=== PATIENT | male | born 1965 | race Caucasian/White ===

== ENCOUNTER 2021-06-03 04:04 | Emergency (ER) | payer MEDICARE, OTHER, SELFPAY ==
[2021-06-03] VITALS (60 sets, daily range): BP systolic 69–176; BP diastolic 29–94; PULSE 62–140; RESP 7–26; TEMP 36.6; O2SAT 93–100
--- NOTE | 2021-06-03 04:00 | RT.EKG_ITS ---
APPROVED REPORT Exam: Resting ECG Reason for Exam: Chest pain Patient Location: E HR:88 bpm ECG Measurements Heart Rate [address] 200 P 60 QRSd 122 QRS 84 QT 401 T 13 QTc 486 Conclusion Sinus rhythm...normal P axis, V-rate 60- 99 Nonspecific intraventricular conduction delay...QRSd >115mS, not LBBB/RBBB, negative for SCARBOSSA. Q wave in lead III. No STEMI.
--- NOTE | 2021-06-03 04:19 | W.ED.GENAD ---
Discharge Plan Disposition Patient Disposition: HOME Condition: Improving Discharge Details Clinical Impression: Chest pain Primary Care Provider: None,None ED Provider: Nasrin Ray Home Meds and New Rx's Prescriptions: New sucralfate [Carafate] 1 gram tablet 1 gm PO QACHS Qty: 14 RF: 0 Continued diazepam 10 mg Tablet 8 mg PO DAILY RF: 0 atorvastatin [Lipitor] 20 mg Tablet 20 mg PO DAILY RF: 0 Testone CIK 200 mg/mL Kit 200 mg subcut [id number] RF: 0 Discharge Instructions Instructions: Chest Pain (ED) Additional Instructions: Drink plenty of fluids and get plenty of rest. Take your Prilosec that you have at home once daily for the next 2 weeks. Your prescription has been sent electronically to your pharmacy. Call the pharmacy to make sure your prescription is ready before pickup. Take the prescription as directed. You will receive a call from care management regarding a follow-up appointment with your primary care doctor to establish care and for reevaluation. You will receive a call from the radiology department regarding scheduling for an outpatient stress test. Call the general surgery office to schedule a follow-up appointment for reevaluation if your chest pain persists or worsens and your stress test is negative for evaluation and consideration for upper endoscopy. Return immediately to the emergency department if you develop any worsening or new concerning symptoms. Referrals: Claudette Louise DO [OSTEOPATHIC DOCTOR] - Discharge Data Discharge Date/Time-TO BE ENTERED AT DEPARTURE: 06/03/21 10:41 Discharge Physician: Nasrin Ray Medical Decision Making <Mitchell Pinedo DO - Last Filed: 06/03/21 06:07> This is a 55-year-old male with a past medical history of pectus excavated him that was surgically repaired, chronic dizziness for which she takes regular Valium, and a history of intermittent chest pain, with a negative cardiac work-up and a self-reported negative cardiac catheterization 3 years ago in [place] who presents today for evaluation of chest pain. Patient states that he was performing fast today, and he has been doing so for the past week. Today he had not eaten for 18 hours, and then this evening he woke up out of sleep with lightheadedness, the symptom of palpitation for about 30 minutes. At this time he had associated mild chest pain, which gradually worsened to what he describes as a squeeze on his heart, as well as a sensation of a small child standing on his chest. This has persisted. EMS arrived and the patient was brought to the ER for further assessment. Patient denies any recent exertional symptoms. He denies any tearing or ripping sensation. He does admit to long drive to [facility] week ago, but no other recent long trips. No history of pulmonary embolism and he or his family, however his mother did have a massive heart attack in her 30s. Patient denies any other complaints at this time. No other modifying factors. Physical exam is relatively unremarkable. Pulses equal, no calf tenderness, lung sounds clear. Vital signs stable, no neurologic deficits. No evidence of ataxia stumbling or other abnormalities. Differential is broad but includes dysrhythmia, less likely ACS, PE. Symptoms appear inconsistent with dissection. I suspect though the most likely cause of his symptoms were from his fasting today, which put him in a bit of an adrenergic surge. We will rehydrate, give aspirin, nitroglycerin trial, monitor closely and reassess. 6:02 AM Laboratory work-up has returned, CBC unremarkable, D-dimer negative and within normal limits, electrolytes normal, renal function good. Calcium slightly low at 8.1. Initial troponin normal, initial EKG shows a bit of an interventricular conduction delay but no other significant abnormality. proBNP is normal suggesting no signs of heart heart strain. Nitroglycerin was given and patient states that this actually made his symptoms slightly worse, he felt a little dizzy lightheaded had slight worsening of his chest pain with the nitro, and then about 30 minutes to an hour after that the pain seemed to go away on its own without intervention. Symptoms certainly do not appear consistent with ACS or at least classic ACS for that matter however with his risk factors I do feel that a repeat troponin and EKG are still indicated. Patient will be signed out to my colleague Dr. Nasrin Ray for reassessment after repeat EKG and repeat troponin. I do feel that the patient would likely be stable for eventual discharge, with outpatient follow-up. EKG 4:10 Sinus rhythm...normal P axis, V-rate 60- 99 Nonspecific intraventricular conduction delay...QRSd >115mS, not LBBB/RBBB, negative for SCARBOSSA. Q wave in lead III. No STEMI. <Nasrin Raimundo Ray - Last Filed: 06/04/21 10:03> 0730 --please see Dr. Pinedo's note presents for initial presentation, exam, and plan. Case endorsed to follow-up repeat troponin and EKG and final disposition. Plan is for discharge home if pt stable and workup negative. Patient assessed by me at bedside and had multiple episodes of squeezing chest pain. He remained hemodynamically stable during these episodes with normal heart rate, blood pressure and oxygen saturation. He states he has had intermittent chest pain for years, but worse over the past week and sometimes wakes him from sleep. He states the episodes are usually better with exertion or exercise. His history and presentation does not appear consistent with ACS. Heart score 2 which is low risk. Chest x-ray noted some increase in lung markings in the right mid to lower lung lares. Clinically presentation does not appears consistent with pneumonia as he denies any report of acute cough or fever w/ normal white blood cell count, normal heart rate and normal O2 saturation. 1015 -- His repeat troponin and EKG are unremarkable. His presentation could be related to a GI etiology, musculoskeletal or anxiety. He was given a dose of Pepcid p.o., Carafate p.o. and GI cocktail p.o. and has significant relief of pain. He has remained hemodynamically stable and feels good to go home. Considering his age and history, will obtain an outpatient stress test and also refer for surgery follow-up if he needs reevaluation and consideration for upper endoscopy. Patient recently moved here from [place]. Will place him on the care management list for PCP to establish care and for reevaluation. We will send a prescription for Carafate electronically to his pharmacy. Usual and customary return precautions given prior to discharge. Medical Records Medical records reviewed: Yes I reviewed the patient's medical records. Imaging Data Radiologic Study: Radiologist's impression: XR Chest Exam date and time: 06/03/2021 5:56 AM Age: 55 years old Clinical indication: Other: Central chest pain; Patient HX: S/P bars for pectus excavatum 2016, removed in 2019 TECHNIQUE: Imaging protocol: XR of the chest. Views: 2 views. COMPARISON: No relevant prior studies available. FINDINGS: Lungs: Lungs appear hyperinflated. There is flattening with suspected tenting of the hemidiaphragms. Streaky opacity in the right mid lung is probably related to atelectasis. Subtle increase in lung markings in the right mid and lower lung. No large airspace consolidations. Pleural spaces: Unremarkable. No pleural effusion. No pneumothorax. Heart/Mediastinum: Unremarkable. No cardiomegaly. Bones/joints: Concavity is of the sternum suggest pectus excavatum deformity. Mild thoracic dextroscoliosis. IMPRESSION: 1. Lungs appear hyperinflated. There is flattening with suspected tenting of the hemidiaphragms. Correlate for COPD. 2. Probable platelike atelectasis in the right midlung. 3. Subtle increase in lung markings in the right mid and lower lung. No large airspace consolidations. This is a nonspecific finding and in an acute setting, subtle pulmonary infection/inflammation in cannot be excluded. 4. Concavity is of the sternum suggest pectus excavatum deformity. Mild thoracic dextroscoliosis. 5. If clinically indicated, chest CT can be obtained to further define above findings. Lab Data Lab results reviewed: Yes I reviewed the patient's lab results. Labs: Laboratory Tests Range/Units 06/03/21 06/03/21 06/03/21 04:20 04:20 04:20 WBC (4.4-10.8) 10^3/uL 5.38 RBC (4.36-5.78) 10^6/uL 5.11 Hgb (13.5-17.5) g/dL 15.2 Hct (40.0-50.0) % 45.1 MCV (80-95) fL 88.3 MCH (27.0-33.0) pg 29.7 MCHC (32.0-36.0) % 33.7 RDW (11.8-14.1) % 12.1 Plt Count (130-400) 10^3/uL 217 MPV (8.0-11.0) fL 9.5 Immature Gran % 0.2 Neutrophils % 55.0 Lymphocytes % 34.4 Monocytes % 6.1 Eosinophils % 3.7 Basophils % 0.6 Nucleated RBC % % 0 Absolute Neutrophils (1.2-6.7) 10^3/uL 2.96 Absolute Lymphocytes (1.2-3.4) 10^3/uL 1.85 Absolute Monocytes (0.1-0.8) 10^3/uL 0.33 Absolute Eosinophils (0.0-0.7) 10^3/uL 0.20 Absolute Basophils (0.0-0.2) 10^3/uL 0.03 PT (9.3-11.0) sec INR (0.9-1.1) APTT (21.0-27.5) sec D-Dimer (<500) ng/mlFEU Sodium (136-145) mmol/L 142 Potassium (3.5-5.1) mmol/L 3.7 Chloride (98-107) mmol/L 105 Carbon Dioxide (21.0-32.0) mmol/L 27.7 Anion Gap (3-11) mmol/L 9.3 BUN (7-18) mg/dL 7 Creatinine (0.70-1.30) mg/dL 1.1 Estimated GFR/1.73 m2 (mL/min/1.73m2) >= 60.00 Glucose (74-106) mg/dL 178 H Calcium (8.5-10.1) mg/dL 8.1 L Total Bilirubin (0.2-1.0) mg/dL 0.5 AST (15-37) U/L 22 ALT (16-63) U/L 37 Alkaline Phosphatase (46-116) U/L 59 Troponin I (<0.06) ng/mL < 0.05 NT-Pro-B Natriuret Pep (<300) pg/mL 18 Total Protein (6.4-8.2) g/dL 6.7 Albumin (3.4-5.0) g/dL 4.0 COVID-19 Source SARS-CoV-2 (PCR) Range/Units 06/03/21 06/03/21 06/03/21 04:30 07:38 10:40 WBC (4.4-10.8) 10^3/uL RBC (4.36-5.78) 10^6/uL Hgb (13.5-17.5) g/dL Hct (40.0-50.0) % MCV (80-95) fL MCH (27.0-33.0) pg MCHC (32.0-36.0) % RDW (11.8-14.1) % Plt Count (130-400) 10^3/uL MPV (8.0-11.0) fL Immature Gran % Neutrophils % Lymphocytes % Monocytes % Eosinophils % Basophils % Nucleated RBC % % Absolute Neutrophils (1.2-6.7) 10^3/uL Absolute Lymphocytes (1.2-3.4) 10^3/uL Absolute Monocytes (0.1-0.8) 10^3/uL Absolute Eosinophils (0.0-0.7) 10^3/uL Absolute Basophils (0.0-0.2) 10^3/uL PT (9.3-11.0) sec 10.2 INR (0.9-1.1) 1.0 APTT (21.0-27.5) sec 23.6 D-Dimer (<500) ng/mlFEU 198 Sodium (136-145) mmol/L Potassium (3.5-5.1) mmol/L Chloride (98-107) mmol/L Carbon Dioxide (21.0-32.0) mmol/L Anion Gap (3-11) mmol/L BUN (7-18) mg/dL Creatinine (0.70-1.30) mg/dL Estimated GFR/1.73 m2 (mL/min/1.73m2) Glucose (74-106) mg/dL Calcium (8.5-10.1) mg/dL Total Bilirubin (0.2-1.0) mg/dL AST (15-37) U/L ALT (16-63) U/L Alkaline Phosphatase (46-116) U/L Troponin I (<0.06) ng/mL < 0.05 NT-Pro-B Natriuret Pep (<300) pg/mL Total Protein (6.4-8.2) g/dL Albumin (3.4-5.0) g/dL COVID-19 Source Cancelled SARS-CoV-2 (PCR) Cancelled ECG Data Attestation: I personally reviewed and interpreted this ECG (s) as follows: Interpretation: rate of 66, sinus, borderlne prolonged TN at 206, no STEMI. HPI <Mitchell Pinedo DO - Last Filed: 06/03/21 06:07> General Date/Time Provider Initiated Documentation: 06/03/21 04:14. HPI Narrative: This is a 55-year-old male with a past medical history of pectus excavated him that was surgically repaired, chronic dizziness for which she takes regular Valium, and a history of intermittent chest pain, with a negative cardiac work-up and a self-reported negative cardiac catheterization 3 years ago in [place] who presents today for evaluation of chest pain. Patient states that he was performing fast today, and he has been doing so for the past week. Today he had not eaten for 18 hours, and then this evening he woke up out of sleep with lightheadedness, the symptom of palpitation for about 30 minutes. At this time he had associated mild chest pain, which gradually worsened to what he describes as a squeeze on his heart, as well as a sensation of a small child standing on his chest. This has persisted. EMS arrived and the patient was brought to the ER for further assessment. Patient denies any recent exertional symptoms. He denies any tearing or ripping sensation. He does admit to long drive to [place] week ago, but no other recent long trips. No history of pulmonary embolism and he or his family, however his mother did have a massive heart attack in her 30s. Patient denies any other complaints at this time. No other modifying factors. Related Data Home Medications Medication Instructions Recorded Confirmed Testone CIK 200 mg SUBCUT [id number] 06/03/21 06/03/21 atorvastatin [Lipitor] 20 mg PO DAILY 06/03/21 06/03/21 diazepam 8 mg PO DAILY 06/03/21 06/03/21 sucralfate [Carafate] 1 gm PO QACHS #14 tab 06/03/21 Previous Rx's Medication Instructions Recorded sucralfate [Carafate] 1 gm PO QACHS #14 tab 06/03/21 Allergies Allergy/AdvReac Type Severity Reaction Status Date / Time levofloxacin [From Levaquin] AdvReac Unverified 06/03/21 04:15 Penicillins AdvReac Unverified 06/03/21 04:14 General Stated Complaint: Chest Pain NINA: 2 Review of Systems <Mitchell Pinedo DO - Last Filed: 06/03/21 06:07> All systems reviewed & are unremarkable except as noted in HPI and below PFSH <Mitchell Pinedo DO - Last Filed: 06/03/21 06:07> Medical History (Updated 06/03/21 @ 10:18 by Nasrin Ray DO) Dizziness Chronic since 1994 High cholesterol Surgical History (Updated 06/03/21 @ 10:18 by Nasrin Ray DO) Hx of cholecystectomy Pectus excavatum repair - 2016 Social History Smoking/Tobacco Use Status: Never Smoking risk assessment performed?: Yes Alcohol Intake: never Do you feel safe at home: Yes Do you feel safe in your relationship?: Yes Exam <Mitchell Pinedo DO - Last Filed: 06/03/21 06:07> Narrative Exam Narrative: 1.Const: Well-nourished, Well-developed, appearing stated age 2.Eyes: PERRL, no conjunctival injection, and symmetrical lids. 3.ENT: Atraumatic external nose and ears. Moist MM. Neck: Symmetric, trachea midline, No thyromegaly. 4.CVS: +S1/S2, No murmurs or gallops. Peripheral pulses 2+ and equal in all extremities. Brisk capillary refill in all extremities. 5.RESP: Unlabored respiratory effort. Clear to auscultation bilaterally. No wheezes rales or rhonchi 6.GI: Soft, Nontender/Nondistended, No hepatosplenomegaly. No guarding or rebound. 7.MSK: Normocephalic/Atraumatic, Extremities w/o deformity or ttp No cyanosis or clubbing, Normal movement of all extremities 8.Skin: Warm, Dry. No rashes or lesions. 9.Neuro: cider maker II-XII grossly intact. Sensation grossly intact, no focal neurologic deficits. 10.Psych: (AAO) x3. Appropriate mood and affect Course <Mitchell Pinedo DO - Last Filed: 06/03/21 06:07> Vital Signs Vital signs: Vital Signs Temperature 36.6 C 06/03/21 04:08 Pulse 91 H 06/03/21 04:08 Respiratory Rate 16 06/03/21 04:08 Blood Pressure 176/94 H 06/03/21 04:08 Pulse Oximetry 99 06/03/21 04:08 Temperature 36.6 C 06/03/21 04:08 Temperature Source Temporal Artery Scan 06/03/21 04:08 Pulse 91 H 06/03/21 04:08 Respiratory Rate 13 06/03/21 04:09 Respiratory Effort 06/03/21 04:09 Blood Pressure 176/94 H 06/03/21 04:08 Blood Pressure Position Sitting 06/03/21 04:08 Pulse Oximetry 99 06/03/21 04:08 Oxygen Delivery Method Room Air 06/03/21 04:08 Oxygen Flow Rate 0 06/03/21 04:08 Pain Level 4 06/03/21 04:08 Sign Out <Mitchell Pinedo DO - Last Filed: 06/03/21 06:07> Sign Out Data: Sign Out Comment: Chest pain, stable EKG, pending repeat troponin and repeat EKG. Last updated by Mitchell Pinedo DO at 06/03/21 06:08
[2021-06-03 04:24] LABS: Abs Immature Grans 0.01 10^3/uL (0.0-0.06); Absolute Basophil Count 0.03 10^3/uL (0.0-0.2); Absolute Lymphocyte Count 1.85 10^3/uL (1.2-3.4); Absolute Monocyte Count 0.33 10^3/uL (0.1-0.8); Absolute Neutrophil Count 2.96 10^3/uL (1.2-6.7); Basophils % 0.6; Eosinophils % 3.7; HCT 45.1 % (40.0-50.0); HGB 15.2 g/dL (13.5-17.5); Immature Grans % 0.2; Lymphocytes % 34.4; MCH 29.7 pg (27.0-33.0); MCHC 33.7 % (32.0-36.0); MCV 88.3 fL (80-95); MPV 9.5 fL (8.0-11.0); Monocytes % 6.1; Nucleated RBC 0 %; Platelet Count 217 10^3/uL (130-400); RBC 5.11 10^6/uL (4.36-5.78); RDW 12.1 % (11.8-14.1); RDW-SD 39.1 fL; WBC 5.38 10^3/uL (4.4-10.8)
[2021-06-03] MEDS: nitroGLYcerin 0.4 MG TAB SL (04:24)
[2021-06-03] MEDS: Normal Saline 1,000 ML 1000 ML IV (04:24)
[2021-06-03] MEDS: Aspirin 81 MG CHEW 324 MG CH (04:24)
[2021-06-03 05:00] LABS: ALT 37 U/L (16-63); AST 22 U/L (15-37); Alkaline Phosphatase 59 U/L (46-116); Anion Gap 9.3 mmol/L (3-11); BUN 7 mg/dL (7-18); Bilirubin, Total 0.5 mg/dL (0.2-1.0); CO2 27.7 mmol/L (21.0-32.0); CREATININE 1.1 mg/dL (0.70-1.30); Calcium 8.1 mg/dL (8.5-10.1); Chloride 105 mmol/L (98-107); Glucose 178 mg/dL (74-106); Potassium 3.7 mmol/L (3.5-5.1); Sodium 142 mmol/L (136-145); Total Protein 6.7 g/dL (6.4-8.2)
[2021-06-03 05:01] LABS: PTT Activated 23.6 sec (21.0-27.5); Prothrombin Time 10.2 sec (9.3-11.0)
[2021-06-03 05:06] LABS: NT-proBNP 18 pg/mL (<300); Troponin I < 0.05 ng/mL (<0.06)
[2021-06-03 05:15] LABS: D-Dimer 198 ng/mlFEU (<500)
--- NOTE | 2021-06-03 05:45 | DI.RAD_ITS ---
Exam(s) XR CHEST 2V PA LATERAL EXAM: XR CHEST 2V PA LATERAL CLINICAL HISTORY: central chest pain TECHNIQUE: 2D digital imaging was performed. COMPARISON: No exams were available for comparison FINDINGS: MEDIASTINUM: Normal. HEART: Normal. PULMONARY VASCULATURE: Normal. LUNGS: Plate atelectasis in the right mid lung. The lungs appear hyperinflated with flattened diaphr agms suggesting underlying COPD. Question of an infiltrate in the right lower lung field. PLEURAL SPACE: No pleural effusion or pneumothorax. BONE:Within normal limits for the patient's age. OTHER FINDINGS:Normal. IMPRESSION: 1. Question of a right lower lobe infiltrate. This may represent atelectasis or pneumonia. Please c orrelate clinically. DATA REPOSITORY: RADIATION DOSE DELIVERED:
--- NOTE | 2021-06-03 06:00 | RT.EKG_ITS ---
APPROVED REPORT Exam: Resting ECG Reason for Exam: chest pain Patient Location: E HR:66 bpm ECG Measurements Heart Rate 66 AXIS SD 203 P 66 QRSd 122 QRS 88 QT 439 T 53 QTc 459 Conclusion Sinus rhythm...normal P axis, V-rate 60- 99 Borderline prolonged SD interval...SD >202, V-rate 50- 90 Nonspecific intraventricular conduction delay...QRSd >115mS, not LBBB/RBBB. No STEMI. I have reviewed and interpreted ECG and agree with software generated interpretation.
--- NOTE | 2021-06-03 06:10 | NUR.NOTE ---
Referral to Care Management to establish pcp in 2-3 weeks, chest pain.Nursing Note:
--- NOTE | 2021-06-03 07:47 | DI.VRAD_ITS ---
PROCEDURE INFORMATION: Exam: XR Chest Exam date and time: 06/03/2021 5:56 AM Age: 55 years old Clinical indication: Other: Central chest pain; Patient HX: S/P bars for pectus excavatum 2016, removed in 2019 TECHNIQUE: Imaging protocol: XR of the chest. Views: 2 views. COMPARISON: No relevant prior studies available. FINDINGS: Lungs: Lungs appear hyperinflated. There is flattening with suspected tenting of the hemidiaphragms. Streaky opacity in the right mid lung is probably related to atelectasis. Subtle increase in lung markings in the right mid and lower lung. No large airspace consolidations. Pleural spaces: Unremarkable. No pleural effusion. No pneumothorax. Heart/Mediastinum: Unremarkable. No cardiomegaly. Bones/joints: Concavity is of the sternum suggest pectus excavatum deformity. Mild thoracic dextroscoliosis. IMPRESSION: 1. Lungs appear hyperinflated. There is flattening with suspected tenting of the hemidiaphragms. Correlate for COPD. 2. Probable platelike atelectasis in the right midlung. 3. Subtle increase in lung markings in the right mid and lower lung. No large airspace consolidations. This is a nonspecific finding and in an acute setting, subtle pulmonary infection/inflammation in cannot be excluded. 4. Concavity is of the sternum suggest pectus excavatum deformity. Mild thoracic dextroscoliosis. 5. If clinically indicated, chest CT can be obtained to further define above findings. Dictated and Authenticated by: Rush Garcia MD. Ordering:FREDY Medrano MD
[2021-06-03 08:06] LABS: Troponin I < 0.05 ng/mL (<0.06)
[2021-06-03] MEDS: Sucralfate 1 GM TAB PO (09:02)
[2021-06-03] MEDS: Famotidine 20 MG TAB PO (09:02)
--- NOTE | 2021-06-03 18:57 | NUR.NOTE ---
Nursing Note: Referral give to care management for a pcp - libl
--- NOTE | 2021-06-03 18:58 | NUR.NOTE ---
Nursing Note: referral give to care management for general surgery- libl 06/03/21
[2021-06-04 13:24] LABS: COVID-19 RT-PCR UVMMC Result Negative (Negative)
--- NOTE | 2021-06-06 13:28 | PDOC.ERCMPRO ---
- If Service Date Differs Date of service: 06/06/21 Time of Service: 13:28 Care Management Progress Note Dung is seen in the ED for chest pain and GERD. At the request of ED provider, CM coordinates a referral to [facility] for an evaluation of GERD.
== END 2021-06-03 10:41 | disposition home or self-care (01) ==
PROVIDERS: Student in an Organized Health Care Education/Training Program; Emergency Provider Physician Assistant
DX: R07.89 Other chest pain (principal); R42 Dizziness and giddiness; R00.2 Palpitations; R06.00 Dyspnea, unspecified; Z03.818 Encounter for observation for suspected exposure to other biological agents ruled out; Z82.49 Family history of ischemic heart disease and other diseases of the circulatory system
CPT/HCPCS: 36415; 80053; 87635; 93005; 96360; 99285; U0003; U0005; 71046; 83880; 84484; 85025; 85379; 85610; 85730; 93010

== ENCOUNTER 2021-06-13 01:23 | Outpatient (CLI) | payer MEDICARE, OTHER, SELFPAY ==
--- NOTE | 2021-06-13 09:00 | ETT_ITS ---
APPROVED REPORT Exam: Exercise Treadmill Patient Location: Out-Patient Room/Bed: Stress Nurse: Margie Hernandez RN Ordering Provider:ELIZABETH ANDREWS, Contact Number: [phone] BMI: 24.13 Baseline Rhythm: Sinus Rhythm Comment: incomplete RBBB Medical History Medical History: Hyperlipidemia, dizziness Cardiac Medications: Atorvastatin, diazepam, sucralfate Allergies: Levofloxacin, penicllins Cardiac Risk Factors: Hyperlipidemia, family hx Previous Cardiac Procedures: None Pretest Chest Pain Characteristics: Mild little pin pricks midsternal, mild dizziness. Exercise History: Physically active Physical Disabilities: None Lung Sounds: Clear to auscultation Heart Sounds: Regular Stress Test Details Test: Exercise stress testing was performed using a Ten protocol. Rest Stress HR Resting HR Supine: 79 bpm Max Heart Rate (APMHR): 165 bpm Resting HR Standin bpm Target HR (85% APMHR): 140 bpm Max HR Achieved: 158 bpm % of APMHR: 95 Recovery HR: 96 bpm HR response to stress: Normal HR response to stress BP Resting BP Supine: 130/88 mmHg Resting BP Standin/84 mmHg Max BP: 170/74 mmHg Recovery BP: 132/76 mmHg BP response to stress: Normal blood pressure response to stress. ECG Resting ECG: Sinus Rhythm Ectopy: None Comment: Borderline 1 DHB, incomplete RBBB Stress ECG: Sinus Tachycardia ST Change: No significant ST segment changes noted Arrhythmia: None Recovery ECG: Sinus Rhythm Recovery ST Change: No significant ST segment changes noted Recovery Arrhythmia: None Clinical Reason for Termination: Fatigue Stress Symptoms: Chest pain, General Fatigue Exercise duration: 10 min24 sec Highest Stage Reached: Stage 4: 4.2 mph at 16% grade. Exercise capacity: 12.47 METs Pretty Treadmill Score: 6 Rate Pressure Product: 01864 Stress ECG Conclusion 1. Patient exercised for 10 minutes (12.4 METS). The patient's heart rate and blood pressure augment ed appropriately. 2. The patient 2/10 substernal discomfort during exercise but this was nonlimiting. Exercise was sto pped due to fatigue. 3. The patient had no EKG changes suggestive of ischemia. Pretty Treadmill Score is 6 which is Low risk. Stress Test Summary STAGE Time (mins) Speed (mph) Grade (%) HR BP SYMPTOMS METS Supine 79 130/88 Standing 86 128/84 Mild little pin pricks midsternal, mild dizziness. 1 3 1.7 10 105 140/80 Intermittent CP 2/10, SpO2 92% 4.6 2 6 2.5 12 122 152/78 SpO2 94% 7 3 9 3.4 14 141 160/72 SpO2 92% 10.2 4 12 4.2 16 154 SpO2 91% 12.9 1 min recovery 140 170/74 Moderate dizziness, SpO2 97% 3 min recovery 102 150/80 6 min recovery 96 132/76 Symptoms resolved back to baseline w/ mild dizziness.
== END 2021-06-13 01:43 ==
PROVIDERS: Visit Provider Physician Assistant
DX: R07.9 Chest pain, unspecified (principal); I45.10 Unspecified right bundle-branch block; E78.5 Hyperlipidemia, unspecified; Z82.49 Family history of ischemic heart disease and other diseases of the circulatory system
CPT/HCPCS: 93016; 93018; 93017

== ENCOUNTER 2021-06-28 07:16 | Outpatient (RCR) | payer MEDICARE, OTHER, SELFPAY ==
--- NOTE | 2021-06-28 13:00 | HOLTER_ITS ---
APPROVED REPORT Conclusion This is a 48-hour Holter monitor reportedly ordered for bradycardia Rhythm throughout was sinus with an average heart rate of 76. Minimum was 52, maximum 115 There were 2 isolated PVCs There were no supraventricular dysrhythmias There was no atrial fibrillation. There was no high-grade AV block. There were no pauses greater than 3 seconds Patient symptoms corresponded to sinus rhythm
== END 2021-07-05 23:59 | disposition home or self-care (01) ==
LOC: RT 07:16
PROVIDERS: PCP Family Medicine; Visit Provider Family Medicine
DX: R00.1 Bradycardia, unspecified (principal)
CPT/HCPCS: 93225

== ENCOUNTER 2021-07-21 03:23 | Outpatient (RCR) | payer MEDICARE, OTHER, SELFPAY | END 2021-08-04 23:59 | disposition home or self-care (01) | LOC: RT 03:23 | PROVIDERS: PCP Family Medicine; Visit Provider Family Medicine | DX: R00.1 Bradycardia, unspecified (principal); I49.3 Ventricular premature depolarization | CPT/HCPCS: 93227; 93272; 93226 ==

== ENCOUNTER → 2021-07-26 10:34 | Outpatient (BNVA) | payer MEDICARE, OTHER, SELFPAY | PROVIDERS: PCP Family Medicine; Referring Provider Family Medicine; Visit Provider Surgery | DX: R07.89 Other chest pain (principal) | CPT/HCPCS: 99202; 99213 ==

== ENCOUNTER 2021-07-28 01:48 | Outpatient (CLI) | payer MEDICARE, OTHER, SELFPAY ==
[2021-07-28 11:54] LABS: Abs Immature Grans 0.01 10^3/uL (0.0-0.06); Absolute Basophil Count 0.04 10^3/uL (0.0-0.2); Absolute Eosinophil Count 0.13 10^3/uL (0.0-0.7); Absolute Lymphocyte Count 1.79 10^3/uL (1.2-3.4); Absolute Monocyte Count 0.37 10^3/uL (0.1-0.8); Absolute Neutrophil Count 2.82 10^3/uL (1.2-6.7); Basophils % 0.8; Eosinophils % 2.5; HCT 46.2 % (40.0-50.0); HGB 15.7 g/dL (13.5-17.5); Immature Grans % 0.2; Lymphocytes % 34.7; MCH 29.8 pg (27.0-33.0); MCV 87.7 fL (80-95); MPV 9.7 fL (8.0-11.0); Monocytes % 7.2; Neutrophils % 54.6; Nucleated RBC 0 %; Platelet Count 247 10^3/uL (130-400); RBC 5.27 10^6/uL (4.36-5.78); RDW 12.1 % (11.8-14.1); RDW-SD 38.8 fL; WBC 5.16 10^3/uL (4.4-10.8)
[2021-07-28 13:00] LABS: Calculated LDL 109 mg/dL (<100); Cholesterol 196 mg/dL (<200); HDL Cholesterol 36 mg/dL (40-60); Triglyceride 255 mg/dL (<150)
[2021-08-04 08:46] LABS: Testosterone, Free 7.33 ng/dL (3.87-14.7); Testosterone, Total 282 ng/dL (240-950)
== END 2021-07-28 01:49 | disposition home or self-care (01) ==
LOC: LBO 01:48
PROVIDERS: Naturopath; PCP Family Medicine; Visit Provider Family Medicine
DX: R79.89 Other specified abnormal findings of blood chemistry (principal); E78.5 Hyperlipidemia, unspecified
CPT/HCPCS: 36415; 80061; 84402; 84403; 84154; 85025

== ENCOUNTER 2021-08-02 09:19 | Outpatient (CLI) | payer MEDICARE, OTHER, SELFPAY | END 2021-08-02 09:20 | LOC: CARDO 08-16 15:18 | PROVIDERS: PCP Family Medicine; Referring Provider Family Medicine; Visit Provider Internal Medicine Cardiovascular Disease | DX: R00.1 Bradycardia, unspecified (principal); I49.3 Ventricular premature depolarization | CPT/HCPCS: 93272 ==

== ENCOUNTER 2021-08-02 12:05 | Outpatient (CLI) | payer MEDICARE, OTHER, SELFPAY ==
--- NOTE | 2021-08-02 12:00 | RT.EKG_ITS ---
APPROVED REPORT Exam: Resting ECG Reason for Exam: Long-term atypical chest pressure Patient Location: O HR:84 bpm ECG Measurements Heart Rate 84 AXIS MT 175 P 59 QRSd 113 QRS 95 QT 387 T 26 QTc 459 Conclusion Sinus rhythm...normal P axis, V-rate 60- 99 Normal Electrocardiogram
== END 2021-08-02 12:06 | disposition home or self-care (01) ==
LOC: DI.KIM 12:06
PROVIDERS: PCP Family Medicine; Visit Provider Family Medicine
DX: R07.89 Other chest pain (principal)
CPT/HCPCS: 93010; 93272

== ENCOUNTER 2021-08-11 01:34 | Outpatient (CLI) | payer MEDICARE, OTHER, SELFPAY ==
--- NOTE | 2021-08-11 08:22 | DI.CT_ITS ---
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 TECHNIQUE: Imaging protocol: Axial computed tomography images were obtained and coronal and sagittal reformatted images were created and reviewed. COMPARISON: CR,XR XR CHEST 2V PA LATERAL from 06/03/2021 CR,XR XR CHEST 2V PA LATERAL from 06/03/2021 FINDINGS: Tracheobronchial tree: Patent where visualized. Pulmonary parenchyma: No consolidation or dominant measurable mass. Pleural and parenchymal scarring is present. Mediastinum and Francine: No dominant adenopathy or fluid collection. Thyroid gland: Unremarkable. Pleura: No effusion or pneumothorax. Heart: The heart is not dilated. No coronary artery calcifications are seen. No pericardial effusion. Aorta: Thoracic aorta non-dilated. Upper abdomen: Unremarkable. Lymph nodes: Within normal limits. Soft tissues: Unremarkable. Bones:Within normal limits for the patient's age. Old right rib deformities. This may represent old fractures. No acute abnormality. There is a deformity of the sternum which may be postsurgical or pos ttraumatic. IMPRESSION: 1. No acute pulmonary process. 2. Fracture deformities involving the sternum and right ribs. RADIATION DOSE DELIVERED: 605.84mGy.cm Total DLP 605.84mGy.cm Total DLP DATA REPOSITORY: All CT scans at this facility are submitted to the National Radiology Data Registry (NRDR) Dose Index Registry (DIR) with the [employer] (ACR). RADIATION OPTIMIZATION: All CT scans at this facility use at least one of these dose optimization te chniques: automated exposure control; mA and/or kV adjustment per patient size (includes targeted exa ms where dose is matched to clinical indication); or iterative reconstruction.
== END 2021-08-11 01:54 ==
PROVIDERS: PCP Family Medicine; Visit Provider Family Medicine
DX: Q67.6 Pectus excavatum (principal); M95.4 Acquired deformity of chest and rib
CPT/HCPCS: 71250

== ENCOUNTER → 2021-11-08 08:00 | Outpatient (BNVA) | payer MEDICARE, OTHER, SELFPAY | PROVIDERS: PCP Family Medicine; Referring Provider Family Medicine; Visit Provider Urology | DX: F52.32 Male orgasmic disorder (principal); E29.1 Testicular hypofunction; N52.9 Male erectile dysfunction, unspecified | CPT/HCPCS: 36415; 99214 ==

== ENCOUNTER 2021-11-08 09:26 | Outpatient (REF) | payer MEDICARE, OTHER, SELFPAY | END 2021-11-08 09:27 | disposition home or self-care (01) | LOC: LBN 09:26 | PROVIDERS: PCP Family Medicine; Visit Provider Urology | DX: F52.32 Male orgasmic disorder (principal) | CPT/HCPCS: 84146 ==

== ENCOUNTER 2022-01-12 02:16 | Outpatient (CLI) | payer MEDICARE, OTHER, SELFPAY ==
[2022-01-15 12:54] LABS: Testosterone, Total 684 ng/dL (240-950)
== END 2022-01-12 02:17 | disposition home or self-care (01) ==
LOC: LBO 02:17
PROVIDERS: PCP Family Medicine; Visit Provider Urology
DX: E29.1 Testicular hypofunction (principal); F52.32 Male orgasmic disorder
CPT/HCPCS: 36415; 84403

== ENCOUNTER → 2022-02-17 09:03 | Outpatient (BNVA) | payer MEDICARE, OTHER, SELFPAY | PROVIDERS: PCP Family Medicine; Referring Provider Family Medicine; Visit Provider Urology | DX: E29.1 Testicular hypofunction (principal); N40.1 Benign prostatic hyperplasia with lower urinary tract symptoms | CPT/HCPCS: 99443 ==

== ENCOUNTER 2022-08-18 01:40 | Outpatient (CLI) | payer MEDICARE, OTHER, SELFPAY ==
--- OUTSIDE RECORDS SUMMARY | 2022-08-18 01:47 | XMS_ITS | Encounter Summary ---
:1965 Author Organization [facility] [place] [address] Care Team Providers Name Role Phone Unavailable Primary Care Provider Unavailable Encounter Details Date Type Department Care Team Description 06/03/2021 Ancillary Procedure Radiology Library at Jeny Bedolla, [facility] [address] [place] [phone] (Wo rk) Social History Tobacco Use Types Packs/Day Years Used Date Never Assessed Sex Assigned at Date Recorded Not on file documented as of this encounter Plan of Treatment Upcoming Encounters Date Type Specialty Care Team Description 09/12/2022 Office Visit Orthopaedics Odessa Syed Jr., MD [facility] DR ORTHOPAEDIC SURG [place], [place] [address] (Wo rk) documented as of this encounter Procedures Procedure Name Priority Date/Time Associated Diagnosis Comme nts FILM LIBRARY Routine 06/03/2021 12:00 AM Results for this STORAGE ONLY DX EDT procedure ar e in CHEST the results section. documented in this encounter Results Film Library- Storage Only DX Chest (06/03/2021 12:00 AM EDT) Specimen (Source) Anatomical Location Collection Method / Collectio n Time Received Time / Laterality Volume Narrative RAD - 08/18/2021 11:07 AM EDT This exam is auto-finalizing. It's purpo se is for storage only. Benito JENKINSG FILM LIBRARY ORDERABLES Performing Organization Address City/State/ZIP Code Phon e Number DH RAD DH STEPHAN [place] documented in this encounter Visit Diagnoses Not on filedocumented in this encounter
--- OUTSIDE RECORDS SUMMARY | 2022-08-18 01:47 | XMS_ITS | Encounter Summary ---
:1965 Author Organization [place] [address] Care Team Providers Name Role Phone Unavailable Primary Care Provider Unavailable Encounter Details Date Type Department Care Team Description 09/15/2021 Telephone Cardiology at [facility] [place] [address] Social History Tobacco Use Types Packs/Day Years Used Date Never Assessed Sex Assigned at Date Recorded Not on file documented as of this encounter Miscellaneous Notes Telephone Encounter - Maylin Gold LNA - 09/20/2021 10:20 AM EST All medications and allergies have been updated for clinic visit with Dr. Solano on 09/22. documented in this encounter Plan of Treatment Upcoming Encounters Date Type Specialty Care Team Description 09/12/2022 Office Visit Orthopaedics Odessa Syed Jr., MD [facility] DR ORTHOPAEDIC SURG [place], [place] [address] (Wo rk) documented as of this encounter Visit Diagnoses Not on filedocumented in this encounter
--- OUTSIDE RECORDS SUMMARY | 2022-08-18 01:47 | XMS_ITS | Encounter Summary ---
:1965 Author Organization [facility] [place] [address] Care Team Providers Name Role Phone Benito Bedolla DO Primary Care Provider Reason for Referral Consultation (Routine) - Authorized Specialty Diagnoses / Procedures Referred By Contact Refer red To Contact Orthopaedics Diagnoses Carpal tunnel syndrome on right CTS R HAND/WRIST Daphney Moura MD [facility] [address] [address] Fax: Referral ID Status Reason Start Expiration Visits Visits Date Date Requested Authorized [id number] Authorized Consult, 08/10/2022 08/10/2023 6 6 Test & Treat PCP Updated and/or Approved Encounter Details Date Type Department Care Team Description 08/10/2022 Transcribe Orders eDH Incoming Daphney Moura Carpal tunnel Lorena Morrison MD syndrome on right [phone] [address] [place] [address] Social History Tobacco Use Types Packs/Day Years Used Date Never Smoker Smokeless Tobacco: Never Used Alcohol Use Standard Drinks/Week Comments Never 0 (1 standard drink = 0.6 oz pure 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 How many drinks containing alcohol Not asked do you have on a typical day when you are drinking? How often do you have six or more Not asked drinks on one occasion? Comment: Identified as alcoholic until 09/05 no longer drinking Sex Assigned at Date Recorded Not on file documented as of this encounter Plan of Treatment Upcoming Encounters Date Type Specialty Care Team Description 09/12/2022 Office Visit Orthopaedics Odessa Syed Jr., MD [facility] DR ORTHOPAEDIC SURG [place], [place] [address] (Wo rk) Scheduled Referrals Name Type Priority Associated Order Schedule Diagnoses Referral to Outpatient Referral Routine Carpal tunnel Ordered : Orthopaedics syndrome on right 08/10/2022 documented as of this encounter Visit Diagnoses Diagnosis Carpal tunnel syndrome on right Carpal tunnel syndrome documented in this encounter Care Teams Transit Worker Relationship Specialty Start Date End Date Benito Bedolla DO PCP - General Family Medicine 09/22/[address] [place] [address] documented as of this encounter
--- OUTSIDE RECORDS SUMMARY | 2022-08-18 01:48 | XMS_ITS | Encounter Summary ---
:1965 Author Organization [facility] Address [address] [place] [address] Care Team Providers Name Role Phone Uri Caballero ND Primary Care Provider Reason for Referral Cardiology (Routine) - Authorization Not Required Specialty Diagnoses / Procedures Referred By Contact Refer red To Contact Cardiology Diagnoses Family history of Marfan syndrome Bigg Brooke Tilley Cardiology Procedures TRANSTHORACIC ECHO (TTE) COMPLETE MD [address]onte [address], [place], Phone: Level [address] [place] [address] Referral ID Status Reason Start Expiration Visits Visits Date Date Requested Authorized [id number] Authorization Not 06/02/2021 1 1 Required Encounter Details Date Type Department Care Team Description 06/02/2021 Orders Only [facility] Bigg Brooke y history of Cardiology - Tammy Lopez MD Marfan syndrome [address] [place] (Primary Dx) [place], [place] [address] [place] [address], [facility]ly [facility] [address] [place] [address] (Wo rk) Social History Tobacco Use Types Packs/Day Years Used Date Never Assessed Sex Assigned at Date Recorded Not on file documented as of this encounter Plan of Treatment Not on filedocumented as of this encounter Results TRANSTHORACIC ECHO (TTE) COMPLETE W/DOPPLER W/CF NO CONTRAST (08/25/2021 11:13 EDT) Pathologist Sig nature LA Atrial Length A2C 6.1 cm [facility] LA Atrial Area A4C 26.7 cm2 [facility] LA ID/bsa, A-P 1.5 cm/m2 [facility] LA ID, A-P, ES 3.0 cm [facility] LV PW thickness, ED, PLAX 0.7 0.6 - 1.1 cm [facility] Aortic root ID 3.0 cm [facility] LV ejection fraction, 1-p A4C 66 % [facility] O LVOT mean gradient, S 2 mmHg [facility] AV LVOT peak gradient 3 mmHg [facility] LV e', lateral 0.13 m/s [facility] Mitral deceleration time 155 ms [facility] LV IVRT, DP 63 msec [facility] LVOT area 3.1 cm2 [facility] LVOT peak velocity, S 0.9 m/s [facility] LVOT VTI, S 18.9 cm [facility] Stroke volume (SV), LVOT DP 59 ml [facility] LVOT mean velocity, S 0.6 m/s [facility] Mitral E-wave peak velocity 0.6 m/s [facility] Mitral A-wave peak velocity 0.5 m/s [facility] LV Systolic Volume Index 16.0 mL/m2 [facility] LV Diastolic Volume Index 49.0 mL/m2 [facility] LA Atrial Length A4C 5.9 cm [facility] LVOT ID, S 2.0 cm [facility] EF 67 % [facility] LA volume, ES, BP 67.0 ml [facility] LA volume/bsa, ES, A4C 44.0 ml/m2 [facility] LA volumes, ES, A4C 87.0 ml [facility] LA volume/bsa, ES, BP 33.0 ml/m2 [facility] LV Systolic Volume 32 mL [facility] LV Diastolic Volume 98 mL [facility] Stroke index (SV/bsa) LVOT DP 30.0 ml/m2 [facility] O Interventricular Septum to 1.1 [facility] Posterior Wall Thickness Ratio IVS thickness, ED, PLAX 0.8 cm [facility] LV e', medial 0.09 m/s [facility] LV e', average 0.11 m/s [facility] Pulmonic valve mean velocity, S 1 cm/s [facility] Ascending aorta ID, a-p 4.0 cm [facility] LA Atrial Area A2C 26.7 cm2 [facility] LA/aortic root ratio 1 [facility] LV ID, ED, PLAX 4.7 3.5 - 6.0 cm [facility] LV ID, ES, PLAX 3.2 2.1 - 4.0 cm [facility] LV end diastolic volume 1-p A2C 88 ml [facility] LV ejection fraction, 1-p A2C 69 % [facility] O LV E/e', lateral 5.0 [facility] LV E/e', medial 5.0 [facility] LV E/e', average 5 [facility] LV end-diastolic volume, 1-p 107 ml [facility] A4C Specimen Narrative [facility] - 08/25/2021 11:38 EDT ?Left??Ventricle: Left ventricular systolic function was normal with an ejection fraction of 60-65%. Left ventri cular wall motion was normal; there were no regional wall motion abnor malities. ?Right??Ventricle: The right ventricular cavity was normal in size. Right ventricular systolic function was normal . ?Aorta: The ascending aorta was mildly dilated to 4.0 cm. Performing Organization Address City/State/[facility] Code Phon e Number [facility] documented in this encounter Visit Diagnoses Diagnosis Family history of Marfan syndrome - Prim [place] Family history of Marfan syndrome documented in this encounter Care Teams Silo Tender Relationship Specialty Start Date End Date Uri Caballero ND PCP - General Naturopathic Medicine 06/02/21 08/24/[address] [address] documented as of this encounter
--- OUTSIDE RECORDS SUMMARY | 2022-08-18 01:48 | XMS_ITS | Encounter Summary ---
:[address] [facility] Address [address] [place] [address] Care Team Providers Name Role Phone Jose Alberto Olivia ND Primary Care Provider [phone] Encounter Details Date Type Department Care Team Description 11/08/2021 Lab Requisition [facility] Outr Resulting Lab, Pathology & Laboratory Provider [facility] [address] [place], [place] [address] Social History Tobacco Use Types Packs/Day Years Used Date Never Assessed Sex Assigned at Date Recorded Not on file documented as of this encounter Plan of Treatment Not on filedocumented as of this encounter Procedures Procedure Name Priority Date/Time Associated Diagnosis Comme nts PROLACTIN Routine 11/08/2021 8:55 EST Results for this procedure are i n the results section . documented in this encounter Results PROLACTIN (11/08/2021 8:55 EST) Pathologist Sig nature Prolactin 9.0 2.1 - 17.7 ng/mL [facility] Specimen Blood - Venous blood (substance) Performing Organization Address City/State/ZIP Code Phon e Number [facility] [address] [place] [address] SERVICES documented in this encounter Visit Diagnoses Not on filedocumented in this encounter Care Teams Aviation Metalsmith Relationship Specialty Start Date End Date Jose Alberto Olivia ND PCP - General 08/25/[address] [phone] documented as of this encounter
--- OUTSIDE RECORDS SUMMARY | 2022-08-18 01:48 | XMS_ITS | Encounter Summary ---
:1965 Author Organization [facility] Address [address] [place] [address] Care Team Providers Name Role Phone Jose Alberto Olivia ND Primary Care Provider [phone] Reason for Visit Reason Onset Date Comments Appointment Related 03/06/2022 Encounter Details Date Type Department Care Team Description 03/06/2022 Telephone [facility] John Gillespie, Stephani ointment Related Cardiology - Tammy LINDO [address] [place], [place] [address] Social History Tobacco Use Types Packs/Day Years Used Date Never Smoker Smokeless Tobacco: Never Used Sex Assigned at Date Recorded Not on file documented as of this encounter Miscellaneous Notes Telephone Encounter - Leandro Murphy - 03/06/2022 0923 EDT Patient is calling to reschedule his 03/07/[address] Gillespie. This lyric writer was unable to find another availability. Please advise. documented in this encounter Plan of Treatment Not on filedocumented as of this encounter Visit Diagnoses Not on filedocumented in this encounter Care Teams Head Charger Relationship Specialty Start Date End Date Jose Alberto Olivia ND PCP - General 08/25/[address] [phone] documented as of this encounter
--- OUTSIDE RECORDS SUMMARY | 2022-08-18 01:48 | XMS_ITS | Encounter Summary ---
:1965 Author Organization [facility] Address [address] [place] [address] Care Team Providers Name Role Phone Corwin Jose Alberto Rust ND Primary Care Provider [phone] Reason for Visit Reason Comments Chest Pain NPV Dizziness NPV Encounter Details Date Type Department Care Team Description 02/14/2022 Office Visit [facility] John Gillespie Precor dial pain Cardiology - Tammy Padgett MD (Primary Dx) [address] [place] [address] Social History Tobacco Use Types Packs/Day Years Used Date Never Smoker Smokeless Tobacco: Never Used Sex Assigned at Date Recorded Not on file documented as of this encounter Last Filed Vital Signs Vital Sign Reading Time Taken Comments Blood Pressure 112/64 02/14/2022 1403 EDT Pulse 92 02/14/2022 1403 EDT Temperature - - Respiratory Rate - - Oxygen Saturation 97% 02/14/2022 1403 EDT Inhaled Oxygen Concentration - - Weight 75.9 kg (167 lb 6.4 oz) 02/14/2022 1403 EDT Height - - Body Mass Index 22.7 08/25/2021 1114 EDT documented in this encounter Ordered Prescriptions Prescription Sig Dispensed Refills Start Date End Date pantoprazole (PROTONIX) 40 Take 1 Tablet by 30 Tablet 5 10/2022 mg tablet mouth daily. famotidine (PEPCID) 20 mg Take 1 Tablet by 30 Tablet 5 02/03 tablet mouth at bedtime. documented in this encounter Progress Notes John Gillespie MD - 02/14/2022 1410 EDT Subjective: Patient is a 56 y.o. male who presents for evaluation of CP. Patient reports waking up with chest arm and jaw paiun. If he stands up he gets light headed. Evaluated in [place] w/ testing and ? Raised of vasospasm. He gets light headed with extended standing. He denies chest pain on exertion. He describes his symptoms as not changed. Gets Brain fog with onset of exercise. 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 Pain characterized as pressure- like He has been compliant with his medications. Medications side effects include none No past medical history on file. There are no problems to display for this patient. Current Outpatient Medications Medication Sig Dispense Refill ??? atorvastatin (LIPITOR) 20 mg tablet Take 20 mg by mouth daily. ??? diazePAM (VALIUM) 2 mg tablet Take 14 mg by mouth daily. No current facility-administered medications for this visit. Review of Systems A ten point ROS was performed. Pertinent positives are listed above, all others are negative. Syncope x 2 once while driving assoc w/ palpitation Had sleep study in [facility] - EGD in [place] - tobacco + FH CAD - DM + lipids - triglycerides Good hydration Objective: BP 112/64 (BP Cuff Location: Left arm, BP Patient Position: Sitting, BP Cuff Sizes: Adult, regular) Pulse 92 Wt 75.9 kg (167 lb 6.4 oz) SpO2 97% BMI 22.70 kg/m?? Body mass index is 22.7 kg/m??. 90 130/70 120 120/70 Physical Exam: General: Alert, cooperative, no distress, appears stated age. Eyes: Conjunctivae not injected, not pale, nonicteric. Ears: Hearing grossly intact. Neck: Trachea midline, no adenopathy, no thyromegaly. Carotid upstroke normal, no carotid bruit and no JVD. Lungs: Clear to auscultation bilaterally. Chest wall: No tenderness or deformity. Heart: Regular heart sounds, S1, S2 normal, no murmur or rub heard. Normal apical impulse. Abdomen: Soft, non-tender to palpation. No masses felt, No organomegaly. No bruits heard. Extremities: No peripheral edema. No cyanosis. Pulses: Radial pulses 2+ bilaterally. Dorsalis pedis and tibialis posterior 2+ bilaterally. Skin: No pallor, rashes or lesions. Lymph nodes: Cervical, supraclavicular, and axillary nodes normal. Neurologic: Normal strength, nonfocal on exam. Lab Review: No results found for: NA, K, CL, CO2, BUN, CREATININE, CSPMC, GLUCOSE, CALCIUM No results found for: WBC, HGB, HCT, MCV, PLT No results found for: CHOL, TRIG, HDL, LDLBASE Assessment: Jocelyn Nichole is a 56 y.o. year old male who presents with atypical chest pain Plan: Start PPI and H2 chevy Increase salt and fluid intak Elevate HOB Obtain outside studies documented in this encounter Plan of Treatment Not on filedocumented as of this encounter Procedures Procedure Name Priority Date/Time Associated Diagnosis Comme nts ECG REPORT - 02/16/2022 6:00 EDT SCANNED EKG 12-LEAD Routine 02/14/2022 14:31 Precordial pain Results for this EDT procedure are i n the results section. documented in this encounter Results EKG 12-LEAD (02/14/2022 14:31 EDT) Specimen Narrative [facility] EKG - 02/15/2022 20:0 2 EDT ? [facility] ? Test Date: ?2022-02-14 Pat Name: ? JOCELYN NICHOLE ?Department: ?? Tammy Card ? Room: ? Gender: ? Male ? Director Corporate: ?? [id number] : ?1965 ? Requested By: CHEYANNE Padgett Order Number: [id number] ? Reading MD: ?? QUINCY RODRÍGUEZ MD ? Measurements Intervals ?Dayhoit ? Rate: ? 82 ? P: ?76 MD: ? 181 ?QRS: ?82 QRSD: ? 110 ?T: ?38 QT: ? 366 ? QTc: ?428 ? Interpretive Statements SINUS RHYTHM LEFT ATRIAL ENLARGEMENT ??[-0.15mV P-WAV E IN V1/V2] No previous ECG available for comparison I reviewed the tracing and have either a greed or edited the findings in this report. Electronically Signed On 02-16-20 20:02:04 EDT by QUINCY RODRÍGUEZ MD. Procedure Note Quincy Rodríguez MD - 02/15/2022 [facility] Test Date: 2022-02-14 Pat Name: JOCELYN NICHOLE Department: Justen Prajapati Room: Gender: Male Director Corporate: [id number] : 1965 Requested By: CHEYANNE SPICER YEN F Order Number: [id number] Reading MD: Raimundo RODRÍGUEZ MD Measurements Intervals Dayhoit Rate: 82 P: 76 MD: 181 QRS: 82 QRSD: 110 T: 38 QT: 366 QTc: 428 Interpretive Statements SINUS RHYTHM LEFT ATRIAL ENLARGEMENT [-0.15mV P-WAVE IN V1/V2] No previous ECG available for comparison I reviewed the tracing and have either a greed or edited the findings in this report. Electronically Signed On 02-16-20 20:02:04 EDT by QUINCY RODRÍGUEZ MD. Performing Organization Address City/State/ZIP Code [facility] e Number [facility] EKG documented in this encounter Visit Diagnoses Diagnosis Precordial pain - Primary documented in this encounter Historical Medications This list may reflect changes made after this encounter. Medication Sig Dispensed Refills Start Date End Date atorvastatin (LIPITOR) 20 Take 20 mg by mouth 0 0 02/15/2020 mg tablet daily. diazePAM (VALIUM) 2 mg Take 14 mg by mouth 0 02/03 tablet daily. added in this encounter Orders Procedures Count Last Ordered Date First Ordered Date ECG REPORT - SCANNED 1 02/20/2022 documented in this encounter Care Teams Finish Photographer Relationship Specialty Start Date End Date Jose Alberto Olivia ND PCP - General 08/25/[address] [facility] [address] [place] [address] documented as of this encounter
--- OUTSIDE RECORDS SUMMARY | 2022-08-18 01:48 | XMS_ITS | Encounter Summary ---
:1965 Author Organization [facility] Address [address] [place] [address] Care Team Providers Name Role Phone Uri Caballero NARENDRA Primary Care Provider Jose Alberto Olivia ND Primary Care Provider [phone] Encounter Details Date Type Department Care Team Description 06/03/2021 Lab Requisition [facility] Outr Resulting Lab, Pathology & Laboratory Provider [facility] [address] [place] [address] Social History Tobacco Use Types Packs/Day Years Used Date Never Assessed Sex Assigned at Date Recorded Not on file documented as of this encounter Plan of Treatment Not on filedocumented as of this encounter Procedures Procedure Name Priority Date/Time Associated Diagnosis Comme nts COVID-19 TEST [facility] Today 06/03/2021 10:40 LAB PCR EDT COVID-19 TESTING Routine 06/03/2021 10:40 Results for this EDT procedure are i n the results section. documented in this encounter Results COVID-19 TEST [facility] LAB PCR (06/03/2021 10:40 EDT) Specimen Swab - Entire nasopharynx (body structur e) Performing Organization Address City/State/ZIP Code Phon e Number [facility] [address] [place] [address] SERVICES COVID-19 TESTING (06/03/2021 10:40 EDT) COVID-19 rt-PCR Negative Negative [facility] Result Comment: [facility] This test has not been FDA c leared or approved. This test has been authorized by FDA under an EUA for use by authorized laboratories. This test has been authorized only for detection of nucleic acid fro SERVICES m 2019-nCoV, not for any oth er viruses or pathogens. This test is only authorized for the duration of the declaration that circumstances exist justifying the authorization of emergency use of in vitro d iagnostic tests for detectio n and/or diagnosis of 2019-nCoV under section 564(b)(1) of Act, 21 U.S.C ?? 360bbb-3(b) (1), unless the authorization is terminated or revoked sooner. Negative results do not prec lude 2019-nCoV infection and should not be used as the sole basis for treatment or other patient management decisions. Negative results must be combined with clinical observa tions, patient history, and epidemiological informatio n. This test was developed and its performance characteristics determined by [facility]. It has not been cleared or approved by the US Food and Drug Administration. FDA does not require this test to go through premarket FDA review. This t est is used for clinical purposes. It should not be regarded as investigational or for research. This laboratory is certified under the Clinical Laboratory Improvement Amendm ents (CLIA) as qualified to perform high complexity clinical laboratory testing. This test is based on the CD C COVID-19 Emergency Use Authorization (EUA) assay, with minor modification as defined by the FDA Performed on the Wolonge 7 Pro RT-PCR System. Performing Lab [facility] Lab [facility] SERVICES Specimen Swab Performing Organization Address City/State/ZIP Code Phon e Number [facility] [address] [place] [address] SERVICES documented in this encounter Visit Diagnoses Not on filedocumented in this encounter Care Teams Police Service Technician Relationship Specialty Start Date End Date Uri Caballero ND PCP - General Naturopathic Medicine 06/02/21 08/24/[address] [address] Jose Alberto Olivia ND PCP - General 08/25/[address] [id number] documented as of this encounter
--- OUTSIDE RECORDS SUMMARY | 2022-08-18 01:48 | XMS_ITS | Encounter Summary ---
:1965 Author Organization [facility] Address [address] [place] [address] Care Team Providers Name Role Phone Unavailable Primary Care Provider Unavailable Encounter Details Date Type Department Care Team Description 02/09/2021 Results Only [facility] - [facility] Noemi Caballero ND Lab - Main [place] [address] [facility] [address] [place] [address] [place], [place] [id number] [phone] Social History Tobacco Use Types Packs/Day Years Used Date Never Assessed Sex Assigned at Date Recorded Not on file documented as of this encounter Plan of Treatment Not on filedocumented as of this encounter Procedures Procedure Name Priority Date/Time Associated Diagnosis Comme nts HEMOGLOBIN A1C Routine 02/09/2021 18:22 EDT Resul ts for this procedure are i n the results section . documented in this encounter Results HEMOGLOBIN A1C (02/09/2021 18:22 EDT) Hemoglobin A1c 4.7 4.0 - 6.0 % [facility] Comment: [facility] > or =18 years: ??Increased risk for diabetes (prediabetes): 5.7-6.4% Diabetes: > or =6.5% Therapeutic goals for glycemic control (ADA) Adults: - Goal of therapy: <7.0% HbA1c - Action suggested: >8.0% HbA1c Pediatric patients: - Toddlers and preschoolers: <8.5% (but >7.5%) - School age (6-12 years): <8% - Adolescents and young adults (13-19 years): <7.5% Est Avg Glucose 88 mg/dL [facility] Specimen Performing Organization Address City/State/ZIP Code Phon e Number [facility] [address] [place] [address] documented in this encounter Visit Diagnoses Not on filedocumented in this encounter
[2022-08-18 10:23] LABS: HCT 44.3 % (40.0-50.0); HGB 15.7 g/dL (13.5-17.5)
[2022-08-18 11:17] LABS: ALT 65 U/L (16-63); AST 36 U/L (15-37); Albumin 4.4 g/dL (3.4-5.0); Alkaline Phosphatase 70 U/L (46-116); Bilirubin, Direct 0.2 mg/dL (0.0-0.2); Total Protein 7.7 g/dL (6.4-8.2)
[2022-08-18 20:42] LABS: PSA, Diagnostic 0.5 ng/mL (<=3.5)
[2022-08-22 16:47] LABS: Testosterone, Total 281 ng/dL (240-950)
== END 2022-08-18 01:41 | disposition home or self-care (01) ==
LOC: LBO 01:41
PROVIDERS: PCP Family Medicine; Visit Provider Urology
DX: E29.1 Testicular hypofunction (principal); N40.1 Benign prostatic hyperplasia with lower urinary tract symptoms
CPT/HCPCS: 36415; 80076; 84403; 84153; 85014; 85018

== ENCOUNTER 2022-10-16 02:07 | Outpatient (CLI) | payer MEDICARE, SELFPAY ==
--- NOTE | 2022-10-16 | DI.US_ITS ---
Exam(s) US ABDOMEN EXAM: US ABDOMEN CLINICAL HISTORY: HEPATOMEGALY AND SPLENOMEGALY TECHNIQUE: Ultrasound of complete upper abdomen performed using standard protocol. COMPARISON: No exams were available for comparison FINDINGS: There is no ascites evident. LIVER: Liver size is slightly prominent. No evidence of steatosis. No discrete focal hepatic lesion s identified. GALLBLADDER/BILIARY: The gallbladder is surgically absent. The common hepatic duct isnot dilated, measuring 6-7mm at the level of sandra hepatis. Commensurate w ith post cholecystectomy status. PANCREAS: There is no evidence of pancreatic mass nor dilatation of the pancreatic duct. SPLEEN: The spleen is enlarged, measuring 15 cm length. No splenic lesions identified. No perisplen ic fluid. KIDNEYS:Kidneys exhibit normal size with no evidence of solid mass, calculus, nor hydronephrosis. No cortical cysts evident. ABDOMINAL AORTA: There is no evidence of abdominal aortic aneurysm. IVC: Normal diameter where visualized. IMPRESSION: 1. There is a splenomegaly. Spleen measures 15 cm. No intrasplenic mass evident. No perisplenic f luid.. 2. Liver also appears prominent in size. However, there are no focal hepatic lesions identified on these images. Also no steatosis. No ascites. 3. Gallbladder surgically absent. CBD diameter is commensurate with post cholecystectomy status. DATA REPOSITORY:
== END 2022-10-16 02:27 ==
PROVIDERS: PCP Family Medicine; Visit Provider Family Medicine
DX: R16.2 Hepatomegaly with splenomegaly, not elsewhere classified (principal); Z90.49 Acquired absence of other specified parts of digestive tract
CPT/HCPCS: 76700

== ENCOUNTER → 2022-12-22 10:23 | Outpatient (BNVA) | payer MEDICARE, SELFPAY | PROVIDERS: PCP Family Medicine; Referring Provider Family Medicine; Visit Provider Urology | DX: E29.1 Testicular hypofunction (principal) | CPT/HCPCS: 99214 ==

== ENCOUNTER 2023-02-27 03:09 | Outpatient (CLI) | payer MEDICARE, SELFPAY ==
[2023-02-27 15:36] LABS: Hemoglobin A1C 5.1 % (<5.7); Prothrombin Time 9.7 sec (9.3-11.0)
[2023-02-27 15:37] LABS: HCT 46.5 % (40.0-50.0); HGB 16.6 g/dL (13.5-17.5); MCH 30.2 pg (27.0-33.0); MCHC 35.7 % (32.0-36.0); MCV 85 fL (80-95); MPV 9.6 fL (8.0-11.0); Platelet Count 231 10^3/uL (130-400); RDW 11.9 % (11.8-14.1); Reticulocyte 0.8 % (0.5-2.4); WBC 5.32 10^3/uL (4.4-10.8)
[2023-02-27 16:01] LABS: ALT 56 U/L (16-63); AST 29 U/L (15-37); Alkaline Phosphatase 72 U/L (46-116); Anion Gap 7.2 mmol/L (3-11); BUN 14 mg/dL (7-18); Bilirubin, Total 0.4 mg/dL (0.2-1.0); CO2 29.8 mmol/L (21.0-32.0); CREATININE 1.1 mg/dL (0.70-1.30); Calcium 8.8 mg/dL (8.5-10.1); Chloride 103 mmol/L (98-107); FREE T4 0.87 ng/dL (0.76-1.46); GGT 74 U/L (15-85); Glucose 124 mg/dL (74-106); Magnesium 1.8 mg/dL (1.8-2.4); Potassium 3.9 mmol/L (3.5-5.1); Sodium 140 mmol/L (136-145); Total Protein 7.6 g/dL (6.4-8.2)
[2023-02-27 16:22] LABS: Iron 188 ug/dL (65-175)
[2023-02-27 16:36] LABS: Vitamin D 25 Total 26.1 ng/mL (30-100)
[2023-02-27 16:45] LABS: Calculated LDL 97 mg/dL (<100); Cholesterol 181 mg/dL (<200); Ferritin 131 ng/mL (26-388); HDL Cholesterol 51 mg/dL (40-60); Triglyceride 165 mg/dL (<150); Vitamin B12 230 pg/mL (193-986)
[2023-02-27 21:50] LABS: Fibrinogen 224 mg/dL (171-384)
[2023-03-01 15:50] LABS: Alkaline Phosphatase 71 U/L (40 - 129); Bone % 30.6 % (19.1-67.7); Intestine 0.6 IU/L (0.0-11.0); Intestine % 0.9 % (0.0-20.6); Liver % 58.4 % (27.8-76.3); Liver 2% 10.1 % (0.0-8.0)
== END 2023-02-27 03:10 | disposition home or self-care (01) ==
PROVIDERS: PCP Family Medicine; Visit Provider Nurse Practitioner Family
DX: Z51.81 Encounter for therapeutic drug level monitoring (principal); I13.10 Hypertensive heart and chronic kidney disease without heart failure, with stage 1 through stage 4 chronic kidney disease, or unspecified chronic kidney disease; G60.9 Hereditary and idiopathic neuropathy, unspecified; M62.81 Muscle weakness (generalized); M35.7 Hypermobility syndrome; D89.9 Disorder involving the immune mechanism, unspecified; R51.9 Headache, unspecified; E55.9 Vitamin D deficiency, unspecified; R74.01 Elevation of levels of liver transaminase levels; K76.9 Liver disease, unspecified; D64.9 Anemia, unspecified
CPT/HCPCS: 36415; 80053; 80061; 82306; 84075; 84080; 85027; 85384; 82607; 82728; 82977; 83036; 83540; 83735; 84439; 84443; 85045; 85610

== ENCOUNTER 2023-06-11 02:26 | Outpatient (CLI) | payer MEDICARE, SELFPAY ==
[2023-06-16 13:17] LABS: Testosterone, Total 657 ng/dL (240-950)
== END 2023-06-11 02:27 | disposition home or self-care (01) ==
LOC: LBO 02:27
PROVIDERS: PCP Family Medicine; Visit Provider Urology
DX: E29.1 Testicular hypofunction (principal)
CPT/HCPCS: 36415; 84403

== ENCOUNTER → 2023-06-19 08:27 | Outpatient (BNVA) | payer MEDICARE, OTHER, SELFPAY | PROVIDERS: PCP Family Medicine; Referring Provider Family Medicine; Visit Provider Urology | DX: E29.1 Testicular hypofunction (principal) | CPT/HCPCS: 99442 ==

== ENCOUNTER 2024-02-12 04:32 | Outpatient (CLI) | payer MEDICARE, OTHER, SELFPAY ==
[2024-02-12 13:13] LABS: HCT 48.4 % (40.0-50.0); HGB 16.8 g/dL (13.5-17.5); MCH 29.9 pg (27.0-33.0); MCHC 34.7 % (32.0-36.0); MCV 86 fL (80-95); MPV 9.5 fL (8.0-11.0); Platelet Count 243 10^3/uL (130-400); RBC 5.61 10^6/uL (4.36-5.78); RDW 11.9 % (11.8-14.1); RDW-SD 37.6 fL; WBC 4.99 10^3/uL (4.4-10.8)
[2024-02-12 13:35] LABS: ALT 35 U/L (16-63); AST 23 U/L (15-37); Albumin 3.9 g/dL (3.4-5.0); Alkaline Phosphatase 61 U/L (46-116); BUN 14 mg/dL (7-18); Bilirubin, Total 0.6 mg/dL (0.2-1.0); CREATININE 1.1 mg/dL (0.70-1.30); Calcium 8.5 mg/dL (8.5-10.1); Chloride 104 mmol/L (98-107); Estimated GFR 77.81 (mL/min/1.73m2); Glucose 86 mg/dL (74-106); Potassium 4.1 mmol/L (3.5-5.1); Sodium 141 mmol/L (136-145); Total Protein 7.3 g/dL (6.4-8.2)
[2024-02-12 22:58] LABS: PSA, Diagnostic 0.7 ng/mL (<=3.5)
[2024-02-15 16:06] LABS: Testosterone, Total 100 ng/dL (240-950)
== END 2024-02-12 04:33 | disposition home or self-care (01) ==
PROVIDERS: PCP Family Medicine; Visit Provider Urology
DX: E29.1 Testicular hypofunction (principal); N42.9 Disorder of prostate, unspecified
CPT/HCPCS: 36415; 80053; 84403; 85027; 84153

== ENCOUNTER → 2024-02-19 10:37 | Outpatient (BNVA) | payer MEDICARE, OTHER, SELFPAY | PROVIDERS: PCP Family Medicine; Referring Provider Family Medicine; Visit Provider Urology | DX: E29.1 Testicular hypofunction (principal); F52.32 Male orgasmic disorder | CPT/HCPCS: 99213 ==

== ENCOUNTER 2024-05-26 16:54 | Outpatient (REF) | payer MEDICARE, OTHER, SELFPAY | END 2024-05-26 16:55 | disposition home or self-care (01) | LOC: LBN 16:54 | PROVIDERS: PCP Family Medicine; Visit Provider Nurse Practitioner Family | DX: J02.9 Acute pharyngitis, unspecified (principal) | CPT/HCPCS: 87070 ==

== ENCOUNTER → 2024-11-25 09:46 | Outpatient (BNVA) | payer MEDICARE, OTHER, SELFPAY | PROVIDERS: PCP Family Medicine; Referring Provider Family Medicine; Visit Provider Urology | DX: E29.1 Testicular hypofunction (principal) | CPT/HCPCS: 98012; 99213 ==

== ENCOUNTER 2025-01-31 20:16 | Emergency (ER) | payer MEDICARE, OTHER, SELFPAY ==
[2025-01-31 20:19] VITALS: BP 190/115; PULSE 107; RESP 20; TEMP 36.7; O2SAT 95
--- NOTE | 2025-01-31 20:29 | ED.GENADUL_ITS ---
Discharge Plan Disposition Patient Disposition: Home Discharge Details Clinical Impression: Right calf pain, Blood pressure elevated without history of HTN Primary Care Provider: Unknown,Unknown ED Provider: Yecenia Martin Home Meds and New Rx's Prescriptions: No Action melatonin 3 mg capsule 6 mg PO HS PRN Rx Instructions: 08/02/21-pt reports takes 6mg ER prn gabapentin 400 mg capsule 400 mg PO QHS (DME) syringe with needle, safety 3 mL 23 gauge x 1 syringe See Rx Instructions .ROUTE .MEDSUPPLY Qty: 5 5RF Rx Instructions: As directed Q 2 weeks for testosterone injection diazepam 2 mg tablet 8 mg PO QHS MDD 8 mg PRN (Reason: anxiety) Qty: 112 2RF Rx Instructions: Patient usually takes less than the full amount sildenafil 100 mg tablet 100 mg PO DAILY PRN (Reason: sexual activity) Qty: 10 6RF testosterone cypionate 200 mg/mL oil 200 mg IM Q2W Qty: 10 1RF Discharge Instructions Instructions: Lowering Your Risk of High Blood Pressure Additional Instructions: Please call diagnostic imaging 7 AM on Sunday to schedule your ultrasound. When you have the ultrasound completed, please go directly to the emergency department to receive your results. Your blood pressure was very elevated today. I recommend that you continue checking your blood pressure at home and call your primary care provider to discuss management of your blood pressure. Untreated hypertension can lead to serious health complications and increase your risk of heart attack, stroke, and kidney damage, so it is very important that you appropriately manage this. Return to emergency care if you develop new severe headache, chest pains, dizziness, difficulty breathing, worsening pain or new redness/swelling to your leg, or if you are very worried and need to be rechecked again immediately. HPI General Date/Time Provider Initiated Documentation: 01/31/25 20:21 . HPI Narrative: Dung is a 59 year old male who presents to the emergency department today for evaluation of R calf cramping. He reports that this started yesterday, is described as a muscle twitching/cramping. Denies associated warmth, edema, redness, distal numbness/tingling. Has otherwise been feeling well, denies fever/chills, chest pain, shortness of breath, change in p.o. intake, diuretic use, bowel or bladder function. No recent trauma, surgery, or cancer history. 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 Past medical history is significant for Chiari malformation. Physical exam reassuring. No calf swelling, erythema, tenderness with palpation, or warmth. Right calf 37 cm versus 35.5 cm right calf. Sensation grossly intact distally. Peripheral pulses intact bilaterally. Normal gait. D/dx includes but is not limited to: Dehydration, electrolyte imbalance, DVT. I independently interpreted the following tests: CBC, BMP, magnesium, D-dimer all reassuring. Based on Wells criteria, DVT unlikely. Emergent ultrasound not indicated at this time, however he would like to have a outpatient ultrasound ordered. I have provided an outpatient order and gave patient instructions to follow-up in ED. Blood pressure was noted to be elevated today, patient denies associated symptoms such as headache, dizziness, chest pain, shortness of breath, change in urine output, weakness. He does admit that his blood pressure has been in the 140s to 150s systolic range recently. Strongly advised him to follow-up with PCP for management of blood pressure. Reviewed discharge instructions with patient, including symptomatic management and red flags indicating need for return to emergency care. He voices agreement with plan of care. Related Data Home Medications ?Medication ?Instructions ?Recorded ?Confirmed melatonin 3 mg capsule 6 mg PO HS PRN 08/02/21 01/31/25 gabapentin 400 mg capsule 400 mg PO QHS 06/15/22 01/31/25 diazepam 2 mg tablet 8 mg (4 x 2 mg) PO QHS PRN anxiety 07/07/22 01/31/25 #112 tabs syringe with needle, safety 3 mL #5 ea 02/19/24 01/31/25 23 gauge x 1 sildenafil 100 mg tablet 100 mg PO DAILY PRN sexual 04/15/24 11/25/24 activity #10 tabs testosterone cypionate 200 mg/mL 200 mg IM Q2W #10 mL 12/25/24 01/31/25 intramuscular oil Previous Rx's ?Medication ?Instructions ?Recorded diazepam 2 mg tablet 8 mg (4 x 2 mg) PO QHS PRN anxiety 07/07/22 #112 tabs syringe with needle, safety 3 mL #5 ea 02/19/24 23 gauge x 1 sildenafil 100 mg tablet 100 mg PO DAILY PRN sexual 04/15/24 activity #10 tabs testosterone cypionate 200 mg/mL 200 mg IM Q2W #10 mL 12/25/24 intramuscular oil Allergies Allergy/AdvReac Type Severity Reaction Status Date / Time levofloxacin (From Levaquin) AdvReac Intermediate dizzy and Verified 01/31/25 20:18 weak fluoxetine (From Prozac) AdvReac Mild Confusion Verified 01/31/25 20:18 and behavioral changes Penicillins AdvReac rash Verified 01/31/25 20:18 General Stated Complaint: Vascular NINA: 3 Review of Systems Narrative: see HPI Exam Const General: cooperative, healthy appearing, comfortable, no acute distress and well developed Nutritional Appearance: average body habitus and well nourished Orientation: alert and oriented x3 Cardio Pulses: dorsalis pedis present Neuro General: patient alert, patient oriented x3, gait normal, tone normal and moves all extremities Cognition: normal cognition Speech: speech normal Motor: muscle tone normal throughout Sensory Exam: no sensory deficits noted Extrem Right lower extremity: normal to inspection, full ROM, normal capillary refill and lower leg Details: normal to inspection and no edema; no erythema, no tenderness, no localized swelling, no palpable cords, no abrasions, no lacerations, no ecchymosis, no crepitus, no foreign bodies, no penetrating wound, no deformity and no unusual warmth; no edema Left lower extremity: normal to inspection Course Vital Signs Vital signs: Vital Signs Temperature 36.7 C 01/31/25 20:19 Pulse 107 H 01/31/25 20:19 Respiratory Rate 20 01/31/25 20:19 Blood Pressure 190/115 H 01/31/25 20:19 Pulse Oximetry 95 01/31/25 20:19 Temperature 36.7 C 01/31/25 20:19 Temperature Source Oral 01/31/25 20:19 Pulse 107 H 01/31/25 20:19 Respiratory Rate 20 01/31/25 20:19 Blood Pressure 190/115 H 01/31/25 20:19 Blood Pressure Position Sitting 01/31/25 20:19 Pulse Oximetry 95 01/31/25 20:19 Oxygen Delivery Method Room Air 01/31/25 20:19 Oxygen Flow Rate 0 01/31/25 20:19 Pain Level 3 01/31/25 20:19 Medical Decision Making Quality:SDOH Health Related Social Needs: No Data to Display PFSH All Active Problems (Updated 01/31/25 @ 21:36 by Yecenia Mijares) Blood pressure elevated without history of HTN (Acute) Right calf pain (Acute) Carpal tunnel syndrome on right (Acute 05/2022) Hypogonadism in male (Acute) Compound nevus (Acute) Marfans syndrome (Acute) Atypical chest pain (Acute) Insomnia (Acute) 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) Hyperlipidemia (Acute) Hyperglycemia (Acute) Bradycardia (Acute) Sleep study 02/02/22 Chest pain (Acute) Medical History High cholesterol Dizziness Chronic since 1994 Surgical History History of carpal tunnel release Right hand Hx of cholecystectomy Pectus excavatum repair - 2015 Family History Father Melanoma Mother Depression Heart disease Social History Smoking/Tobacco Use Status: Current every day Tobacco Type: smokeless tobacco Smoking risk assessment performed?: Yes Alcohol Intake: never Drug use: Never Adopted: No Caregiver/Support person: No Foster care: No Household members: spouse and children Housing: house Number of Children: 3 Communication Needs: Corrective Lenses Education Level: high school Do you need help understanding health information?: Never current occupation: Disability Pets and animals: Yes Pets and animals: dog(s) Sexually active: Yes Do you think of yourself as: straight/heterosexual Current gender identity: male What is your relationship status?: How often do you talk on the phone with friends or family?: never How often do you get together with friends or relatives?: never How often do you attend catholic or buddhism services?: decline to answer Do you belong to any clubs or organized social groups?: no Panel score (0-1 are the most socially isolated patients): 1 What type of physical activity do you participate in: none Duration: decline to answer Frequency: decline to answer Sloane/Muslim: None Special sloane needs: No Seatbelt use: always Drive intox or ride w/intox bobcat driver/labor: No Do you feel safe at home: Yes Do you feel safe in your relationship?: Yes
[2025-01-31 20:42] VITALS: RESP 18
[2025-01-31 20:43] LABS: HCT 46.4 % (40.0-50.0); HGB 16.1 g/dL (13.5-17.5); MCH 30.8 pg (27.0-33.0); MCHC 34.7 % (32.0-36.0); MCV 89 fL (80-95); MPV 9.3 fL (8.0-11.0); Platelet Count 242 10^3/uL (130-400); RBC 5.23 10^6/uL (4.36-5.78); RDW 11.9 % (11.8-14.1); RDW-SD 38.5 fL; WBC 5.06 10^3/uL (4.4-10.8)
[2025-01-31 20:59] LABS: ALT 34 U/L (16-63); AST 20 U/L (15-37); Albumin 4.4 g/dL (3.4-5.0); Alkaline Phosphatase 68 U/L (46-116); Anion Gap 10.3 mmol/L (3-11); BUN 11 mg/dL (7-18); Bilirubin, Total 0.4 mg/dL (0.2-1.0); CO2 30.7 mmol/L (21.0-32.0); CREATININE 1.2 mg/dL (0.70-1.30); Calcium 8.8 mg/dL (8.5-10.1); Chloride 104 mmol/L (98-107); Estimated GFR 69.66 (mL/min/1.73m2); Glucose 101 mg/dL (74-106); Potassium 3.7 mmol/L (3.5-5.1); Sodium 145 mmol/L (136-145); Total Protein 7.7 g/dL (6.4-8.2)
[2025-01-31 21:09] LABS: D-Dimer 281 ng/mlFEU (<500)
[2025-01-31 21:29] VITALS: BP 170/108; PULSE 90; RESP 18; O2SAT 97
--- NOTE | 2025-02-02 08:48 | NUR.NOTE ---
Accessed Pt chart to check if there was an Ultrasound ordered. There is a request for Pt to call and schedule. Information given to current provider to ask if they will write the order for DI.
== END 2025-01-31 21:43 | disposition home or self-care (01) ==
PROVIDERS: Emergency Provider Nurse Practitioner Family
DX: M79.604 Pain in right leg (principal); R03.0 Elevated blood-pressure reading, without diagnosis of hypertension; E78.5 Hyperlipidemia, unspecified; F17.290 Nicotine dependence, other tobacco product, uncomplicated
CPT/HCPCS: 80053; 85027; 99283; 83735; 85379

== ENCOUNTER 2025-02-10 14:05 | Outpatient (CLI) | payer MEDICARE, OTHER, SELFPAY ==
--- NOTE | 2025-02-10 | DI.US_ITS ---
Exam(s) US LOWER EXTREMITY VENOUS RT EXAM: US LOWER EXTREMITY VENOUS RT CLINICAL HISTORY: M79.661 RT calf pain. TECHNIQUE: Lower extremity venous ultrasound performed using grayscale, color-flow, and spectral Do ppler analysis. COMPARISON: No exams were available for comparison FINDINGS: The common femoral, femoral and popliteal veins demonstrate normal compressibility, augmentation, and color Doppler. The posterior tibial and peroneal veins are patent. No saphenous vein thrombosis or other superficial venous thrombosis is seen. No hematoma or Boo's cyst is seen. IMPRESSION: Negative lower extremity ultrasound. No evidence of DVT. DATA REPOSITORY:
== END 2025-02-10 14:25 ==
LOC: DI 14:07
PROVIDERS: Visit Provider Nurse Practitioner Family
DX: M79.661 Pain in right lower leg (principal)
CPT/HCPCS: 93971

== ENCOUNTER 2025-02-10 14:49 | Emergency (ER) | payer MEDICARE, OTHER, SELFPAY ==
[2025-02-10 14:52] VITALS: BP 180/110; PULSE 98; RESP 20; TEMP 36.8; O2SAT 97
--- NOTE | 2025-02-10 15:01 | ED.GENADUL_ITS ---
Discharge Plan Disposition Patient Disposition: Home Condition: Stable Discharge Details Clinical Impression: Right calf pain Primary Care Provider: Unknown,Unknown ED Provider: Tez Calvert Home Meds and New Rx's Prescriptions: Continued melatonin 3 mg capsule 6 mg PO HS PRN Rx Instructions: 08/02/21-pt reports takes 6mg ER prn gabapentin 400 mg capsule 400 mg PO QHS (DME) syringe with needle, safety 3 mL 23 gauge x 1 syringe See Rx Instructions .ROUTE .MEDSUPPLY Qty: 5 5RF Rx Instructions: As directed Q 2 weeks for testosterone injection diazepam 2 mg tablet 8 mg PO QHS MDD 8 mg PRN (Reason: anxiety) Qty: 112 2RF Rx Instructions: Patient usually takes less than the full amount sildenafil 100 mg tablet 100 mg PO DAILY PRN (Reason: sexual activity) Qty: 10 6RF testosterone cypionate 200 mg/mL oil 200 mg IM Q2W Qty: 10 1RF Discharge Instructions Additional Instructions: Your ultrasound did not show any concerning findings at this time. If you continue to have discomfort in a week or 2 follow-up with your primary care provider. If you feel more ill or have severe worsening pain or new symptoms such as chest pain or difficulty breathing return to the emergency department for reevaluation HPI General Mode of arrival: ambulatory . Date/Time Provider Initiated Documentation: 02/10/25 14:50 . Limitations to Documentation: no limitations . Information obtained by: patient . History of Present Illness 59 year old M presents to the emergency department with the chief complaint of right calf pain, described as mild, Quality is described as aching, and is localized to the right and lower extremity. Patient reports no radiation. Patient started experiencing this week(s) (2) and it has been intermittent. No relieving factors improve symptom(s), No exacerbating factors reported . Patient notes no other symptoms.. Patient did receive the following treatments prior to arrival, none Related Data Home Medications ?Medication ?Instructions ?Recorded ?Confirmed melatonin 3 mg capsule 6 mg PO HS PRN 08/02/21 02/10/25 gabapentin 400 mg capsule 400 mg PO QHS 06/15/22 02/10/25 diazepam 2 mg tablet 8 mg (4 x 2 mg) PO QHS PRN anxiety 07/07/22 02/10/25 #112 tabs syringe with needle, safety 3 mL #5 ea 02/19/24 02/10/25 23 gauge x 1 sildenafil 100 mg tablet 100 mg PO DAILY PRN sexual 04/15/24 02/10/25 activity #10 tabs testosterone cypionate 200 mg/mL 200 mg IM Q2W #10 mL 12/25/24 02/10/25 intramuscular oil Previous Rx's ?Medication ?Instructions ?Recorded diazepam 2 mg tablet 8 mg (4 x 2 mg) PO QHS PRN anxiety 07/07/22 #112 tabs syringe with needle, safety 3 mL #5 ea 02/19/24 23 gauge x 1 sildenafil 100 mg tablet 100 mg PO DAILY PRN sexual 04/15/24 activity #10 tabs testosterone cypionate 200 mg/mL 200 mg IM Q2W #10 mL 12/25/24 intramuscular oil Allergies Allergy/AdvReac Type Severity Reaction Status Date / Time levofloxacin (From Levaquin) AdvReac Intermediate dizzy and Verified 02/10/25 14:54 weak fluoxetine (From Prozac) AdvReac Mild Confusion Verified 02/10/25 14:54 and behavioral changes Penicillins AdvReac rash Verified 02/10/25 14:54 General Stated Complaint: Recheck NINA: 4 Review of Systems All systems reviewed & are unremarkable except as noted in HPI and below Constitutional Constitutional: Denies chills, Denies fever(s) and Denies weakness Cardiovascular Cardiovascular: Denies chest pain and Denies dyspnea Respiratory Respiratory: Denies dyspnea Gastrointestinal Gastrointestinal: Denies vomiting Musculoskeletal Musculoskeletal: Denies joint swelling Neurologic Neurologic: Denies weakness Psychiatric Psychiatric: Denies depression Exam Const General: no acute distress Orientation: alert HENNV Head: normal to inspection Ears: external ears normal General nose exam: external nose normal Mouth: moist mucous membranes Eyes General: appearance normal, both eyes and all related structures Neck Neck: normal visual inspection Resp Effort & Inspection: normal respiratory effort and able to speak in complete sentences Cardio Rate: regular rate Skin General skin exam: no rashes or lesions noted Neuro General: patient alert and patient oriented x3 Extrem General: full ROM and capillary refill normal Psych Mental Status: mental status grossly normal Course Vital Signs Vital signs: Vital Signs Temperature 36.8 C 02/10/25 14:52 Pulse 98 H 02/10/25 14:52 Respiratory Rate 20 02/10/25 14:52 Blood Pressure 180/110 H 02/10/25 14:52 Pulse Oximetry 97 02/10/25 14:52 Temperature 36.8 C 02/10/25 14:52 Pulse 98 H 02/10/25 14:52 Respiratory Rate 20 02/10/25 14:52 Blood Pressure 180/110 H 02/10/25 14:52 Blood Pressure Position Sitting 02/10/25 14:52 Pulse Oximetry 97 02/10/25 14:52 Oxygen Delivery Method Room Air 02/10/25 14:52 Oxygen Flow Rate 0 02/10/25 14:52 Medical Decision Making 59-year-old male comes in after he had an ultrasound done of his right calf. He was seen about a week ago for right calf pain and an order placed for an outpatient ultrasound to be done, he states he felt better over the next few days so he did not call to make an appointment but then his calf started hurting again so he finally made an appointment to get the ultrasound done. He says that sometimes he walks upstairs the pain increases. He denies any fevers, difficulty breathing or chest pain. He is well-appearing speaking full sentences. He has full range of motion of his foot and ankle, he has no leg swelling, mild tenderness to the posterior right calf without visible or palpable deformities. Ultrasound is negative. 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) Hyperlipidemia (Acute) Hyperglycemia (Acute) Bradycardia (Acute) Sleep study 02/02/22 Chest pain (Acute) Medical History High cholesterol Dizziness Chronic since 1994 Surgical History History of carpal tunnel release Right hand Hx of cholecystectomy Pectus excavatum repair - 2016 Family History Father Melanoma Mother Depression Heart disease Social History Smoking/Tobacco Use Status: Current every day Tobacco Type: smokeless tobacco Smoking risk assessment performed?: Yes Alcohol Intake: never Drug use: Never Adopted: No Caregiver/Support person: No Foster care: No Household members: spouse and children Housing: house Number of Children: 3 Communication Needs: Corrective Lenses Education Level: high school Do you need help understanding health information?: Never current occupation: Disability Pets and animals: Yes Pets and animals: dog(s) Sexually active: Yes Do you think of yourself as: straight/heterosexual Current gender identity: male What is your relationship status?: How often do you talk on the phone with friends or family?: never How often do you get together with friends or relatives?: never How often do you attend religious or mu-ism services?: decline to answer Do you belong to any clubs or organized social groups?: no Panel score (0-1 are the most socially isolated patients): 1 What type of physical activity do you participate in: none Duration: decline to answer Frequency: decline to answer Sloane/Mandaen: None Special sloane needs: No Seatbelt use: always Drive intox or ride w/intox driver education road instructor: No Do you feel safe at home: Yes Do you feel safe in your relationship?: Yes
[2025-02-10 15:20] VITALS: BP 145/100; PULSE 90; RESP 16; TEMP 37; O2SAT 97
== END 2025-02-10 15:24 | disposition home or self-care (01) ==
LOC: ER 15:11
PROVIDERS: Emergency Provider Emergency Medicine
DX: M79.661 Pain in right lower leg (principal); F17.290 Nicotine dependence, other tobacco product, uncomplicated
CPT/HCPCS: 99282; 93971